=== PATIENT | male | born 1980 | race Two or more races ===

== ENCOUNTER 2025-07-29 23:47 | Emergency (ER) | payer OTHER ==
[~2025-07-29] VITALS: Ht 172.7 cm; Wt 104.0 kg
[2025-07-30] VITALS: TEMP 98.9
[2025-07-30 00:45] LABS: Hematocrit 41.5 % (41.0-53.0); Hemoglobin 14.8 g/dL (13.5-17.5); Mean Corpuscular Hemoglobin 30.6 pg (28.0-32.0); Mean Corpuscular Volume 85.5 fL (80.0-100.0); Nucleated Red Blood Cells % 0.0 %
[2025-07-30 00:56] LABS: Chloride 104 mmol/L (98-107); Sodium 142 mmol/L (136-145)
[2025-07-30 00:57] LABS: Anion Gap 13 (5-15); Carbon Dioxide 25 mmol/L (20-31)
[2025-07-30 00:58] LABS: Calcium 9.4 mg/dL (8.7-10.4)
[2025-07-30 01:03] LABS: BUN/Creatinine Ratio 14.9 (10.0-20.0); Blood Urea Nitrogen 17 mg/dL (9-23)
[2025-07-30 01:27] LABS: Glucose 136 mg/dL (74-106); Potassium 3.0 mmol/L (3.5-5.1)
--- NOTE | 2025-07-30 02:15 | ED.PDOC ---
History of Present Illness HPI Comments This patient is a morbidly obese 44-year-old male who arrives the ED today with his due to complaints of palpitations general discomfort and sleep concerns. Patient appears to be dealing with an undiagnosed psychosis. Patient is anxious at time of evaluation explaining that he needs to do more grounding and therefore, had a copper wire wrapped around his hand. Patient denies any fever nausea or vomiting. Patient denies any pain. Patient was tachycardic at arrival. Chief Complaint: Mental Health Time Seen by MD: 23:52 Reviewed Notes: Nurses Notes Information Source: Patient, Spouse Mode of Arrival: Ambulatory Severity: Moderate Timing: Months Duration: Intermittent Prehospital treatment: None Past Medical History PAST MEDICAL HISTORY: Denies Surgical History: Denies all surgeries Family History Family History: Reviewed,noncontributory to illness, No family hx of Cancer, No family hx of DM, No family hx of Heart ann, No family hx of HTN, No family hx ofKidney ann, No family hx of Liver ann, No family hx of Lung ann, No family hx of Stroke Social History Smoker: Non-Smoker Alcohol: Denies ETOH Use Drugs: Denies Drug Use Lives In: Home Constitutional: reports: malaise; denies: chills, diaphoresis, fatigue, fever, sweats, weakness, others EENTM: denies: blurred vision, double vision, ear bleeding, ear discharge, ear drainage, ear pain, ear ringing, eye pain, eye redness, hearing loss, mouth pain, mouth swelling, nasal discharge, nose bleeding, nose congestion, nose pain, photophobia, tearing, throat pain, throat swelling, voice changes, others Respiratory: denies: cough, hemoptysis, orthopnea, SOB at rest, shortness of breath, SOB with excertion, stridor, wheezing, others Cardiovascular: reports: palpitations; denies: chest pain, dizzy spells, diaphoresis, Dyspnea on exertion, edema, irregular heart beat, left arm pain, lightheadedness, PND, syncope, others Gastrointestinal: denies: abdomen distended, abdominal pain, blood streaked bowels, constipated, diarrhea, dysphagia, difficulty swallowing, hematemesis, melena, nausea, poor appetite, poor fluid intake, rectal bleeding, rectal pain, vomiting, others Genitourinary: denies: burning, dysuria, flank pain, frequency, hematuria, incontinence, penile discharge, penile sore, pain, testicle pain, testicle swelling, urgency, others Neurological: denies: dizziness, fainting, headache, left sided numbness, left sided weakness, numbness, paresthesia, pre-existing deficit, right sided numbness, right sided weakness, seizure, speech problems, tingling, tremors, weakness, others Musculoskeletal: denies: back pain, gout, joint pain, joint swelling, muscle pain, muscle stiffness, neck pain, others Integumetry: denies: bruises, change in color, change in hair/nails, dryness, laceration, lesions, lumps, rash, wounds, others Allergic/Immunocompromised: denies: Difficulty Healing, Frequent Infections, Hives, Itching, others Hematologic/Lymphatic: denies: anemia, blood clots, easy bleeding, easy bruising, swollen glands, others Endocrine: denies: excessive hunger, excessive sweating, excessive thirst, excessive urination, flushing, intolerance to cold, intolerance to heat, unexplained weight gain, unexplained weight loss, others Psychiatric: reports: sleepless; denies: anxiety, bipolar disorder, depression, hopeless, panic disorder, schizophrenia, suicidal, others Physical Exam General Appearance: Moderate Distress (There was [id number] distress due to generalized anxiety concerns.), Normal HEENT: Normal ENT Inspection, Pharynx Normal, TMs Normal Neck: Full Range of Motion, Non-Tender, Normal, Normal Inspection Respiratory: Chest Non-Tender, Lungs Clear, No Accessory Muscle Use, No Respiratory Distress, Normal Breath Sounds Cardiovascular: No Edema, No JVD, No Murmur, No Gallop, Normal Peripheral Pulses, Tachycardia Breast Exam: Deferred Gastrointestinal: No Organomegaly, Non Tender, No Pulsatile Mass, Normal Bowel Sounds, Soft Genitalia: Deferred Pelvic: Deferred Rectal: Deferred Extremities: No calf tenderness, Normal capillary refill, Normal inspection, Normal range of motion, Non-tender, No pedal edema Neurologic: Alert, No Motor Deficits, No Sensory Deficits Cerebellar Function: NOT DONE Reflexes: NOT DONE Skin: Dry, Normal Color, Warm Lymphatic: No Adenopathy Was a procedure done? Was a procedure done?: No Differential Dx Considerations may include: Psychosis, acute coronary syndrome, electrolyte abnormality, sepsis, urinary tract infection, drug use X-Ray, Labs, Meds, VS Vital Signs Date Time Temp Pulse Resp B/P (MAP) Pulse Ox O2 Delivery O2 Flow Rate FiO2 07/30/25 00:15 108 07/30/25 00:00 98.9 111 18 145/103 97 98.9 Lab Test 07/30/25 00:35 Range/Units White Blood Count 10.7 4.4-10.8 10^3/uL Red Blood Count 4.85 4.5-5.90 10^6/uL Hemoglobin 14.8 13.5-17.5 g/dL Hematocrit 41.5 41.0-53.0 % Mean Corpuscular Volume 85.5 80.0-100.0 fL Mean Corpuscular Hemoglobin 30.6 28.0-32.0 pg Mean Corpuscular Hemoglobin Concent 35.8 32.0-36.0 g/dL Red Cell Distribution Width 13.7 11.8-14.3 % Platelet Count 242 140-450 10^3/uL Mean Platelet Volume 7.9 6.9-10.8 fL Neutrophils (%) (Auto) 68.8 37.0-80.0 % Lymphocytes (%) (Auto) 20.9 10.0-50.0 % Monocytes (%) (Auto) 9.5 0.0-12.0 % Eosinophils (%) (Auto) 0.2 0.0-7.0 % Basophils (%) (Auto) 0.6 0.0-2.0 % Neutrophils # (Auto) 7.4 1.6-8.6 10 ^3/uL Lymphocytes # (Auto) 2.2 0.4-5.4 10 ^3/uL Monocytes # (Auto) 1.0 0-1.3 10 ^3/uL Eosinophils # (Auto) 0 0-0.8 10 ^3/uL Basophils # (Auto) 0.1 0-0.2 10 ^3/uL Nucleated Red Blood Cells 0.0 % Sodium Level 142 136-145 mmol/L Potassium Level 3.0 L 3.5-5.1 mmol/L Chloride Level 104 98-107 mmol/L Carbon Dioxide Level 25 20-31 mmol/L Anion Gap 13 5-15 Blood Urea Nitrogen 17 9-23 mg/dL Creatinine 1.14 0.700-1.30 mg/dL Glomerular Filtration Rate Calc 81 >90 mL/min BUN/Creatinine Ratio 14.9 10.0-20.0 Serum Glucose 136 H 74-106 mg/dL Calcium Level 9.4 8.7-10.4 mg/dL Troponin I High Sensitivity 18 </=54 ng/L X-Ray, Labs, Meds, VS Comment All studies performed the ED were evaluated by me personally. Patient would not produce urine. Patient's EKG reveals a sinus tachycardia with a rate of 108. Baseline wander in lead V3. W[place] interval 131 and QT interval of 324 unremarkable EKG. Laboratories were unremarkable for any systemic concerns. Patient appears to be dealing with a mental health issue. Advised patient and to follow up with the primary care provider for mental health referral and evaluation. Time of 1ST Reevaluation: 02:13 Reevaluation 1ST: Improved Consultation: PCP, Psychiatry Patient Education/Counseling: Diagnosis, Treatment Family Education/Counseling: Diagnosis, Treatment SEPSIS Sepsis Screen Date sepsis recognized/suspect: Jul 30, 2025 Time Sepsis recognized/suspect: 001 Recent Procedure: No On Antibiotic Therapy: No Respiratory Rate >20: No Heart Rate >90: No Temp<36 C (96.8 F) or >38.3 C: No SBP <90 or MAP <65 mmHG: No New Acute Mental Status Change: No Is the patient on CPAP, BIPAP,: No Physician Orders Electrocardigram (07/30/25 00:20) Urinalysis (07/30/25 00:22) Drug Screen (07/30/25 00:22) Potassium Effervesent Tab (Klor-Con/Ef) (07/30/25 02:15) Vital Signs Date Time Temp Pulse Resp B/P (MAP) Pulse Ox O2 Delivery O2 Flow Rate FiO2 07/30/25 00:15 108 07/30/25 00:00 98.9 111 18 145/103 97 98.9 Laboratory Tests Test 07/30/25 00:35 White Blood Count 10.7 10^3/uL (4.4-10.8) Departure 1 Departure Time of Disposition: 02:14 Impression: Primary Impression: Palpitations Disposition: 01 HOME / SELF CARE / HOMELESS Condition: Stable Additional Instructions: Advised patient follow up with the primary care provider for discussions related to today's visit. Patient may benefit from conversation with a counselor if the provider feels that is appropriate. Discharged With: Self, Spouse Critical Care Note Critical Care Time?: No Stability Stability form required: No Heart Score Heart Score: Heart Score Response (Comments) Value History N/A 0 EKG N/A 0 Age N/A 0 Risk Factors N/A 0 Troponin N/A 0 Total 0 MARCUS LATHAM PAC Jul 30, 2025 02:15
--- NOTE | 2025-07-30 02:54 | ECG ---
[facility] Test Date: 2025-07-30 Test Time: 00:15:31 Pat Name: BRENDA BARBOSA Department: [facility] ED Patient ID: [facility]-[id number] Room: Gender: M Microbiology Lab Analyst: KENDALL : 1980 Requested By: MARCUS LATHAM Order Number: [id number] Reading MD: Measurements Intervals [place] Rate: 108 P: 30 GA: 131 QRS: 12 QRSD: 97 T: 22 QT: 324 QTc: 435 Interpretive Statements Sinus tachycardia Baseline wander in lead(s) V3 Please click the below link to view image of tracing.
[2025-07-30] MEDS: POTASSIUM EFFERVESENT TAB 25 MEQ PO ONE (03:14)
[2025-07-30 03:17] VITALS: BP 169/105
[2025-07-30 03:20] VITALS: PULSE 106; RESP 22; O2SAT 97
[2025-07-30 05:19] LABS: Urine Protein, UAD 1+ (Negative)
[2025-07-30 05:30] LABS: Cannabinoid Screen, Urine Pos (NEGATIVE)
[2025-07-30 05:32] LABS: Amphetamine Screen, Urine Neg (NEGATIVE); Barbiturate Scree,Urine Neg (NEGATIVE); Benzodiazephine Screen, Urine Neg (NEGATIVE); Cocaine Screen, Urine Neg (NEGATIVE); Opiate Scree,Urine Neg (NEGATIVE); Phencyclidine Screen, Urine Neg (NEGATIVE)
== END 2025-07-30 04:34 | disposition home or self-care (01) ==
LOC: ER 23:47
DX: R00.2 Palpitations (principal); Z79.899 Other long term (current) drug therapy
CPT/HCPCS: 36415; 80048; 80307; 81001; 84484; 85025; 93005